=== PATIENT | female | born 1970 | race Asian ===

== ENCOUNTER 2020-04-03 07:22 | Inpatient (IN) ==
[2020-04-03] MEDS ORDERED: Artificial Tears SOLN 15 ML BOTTLE BOTH EYES PRN (10:17)
[2020-04-03] MEDS ORDERED: Naloxone 0.4 MG/ML INJ IVP PRN (10:17)
[2020-04-03 11:48] LABS: Adenovirus Not Detected (Not Detect); Bordetella Pertussis Not Detected (Not Detect); Chlamydophila pneumoniae Not Detected (Not Detect); Coronavirus 229E Not Detected (Not Detect); Coronavirus HKU1 Not Detected (Not Detect); Coronavirus NL63 Not Detected (Not Detect); Coronavirus OC43 Not Detected (Not Detect); Human Metapneumovirus Not Detected (Not Detect); Human Rhinovirus/Enterovirus Not Detected (Not Detect); Influenza A Subtype 2009 H1 Not Detected (Not Detect); Influenza B Not Detected (Not Detect); Mycoplasma pneumoniae Not Detected (Not Detect); Parainfluenza Virus 1 Not Detected (Not Detect); Parainfluenza Virus 2 Not Detected (Not Detect); Parainfluenza Virus 3 Not Detected (Not Detect); Parainfluenza Virus 4 Not Detected (Not Detect); Respiratory Syncytial Virus Not Detected (Not Detect); SARS-CoV-2 Not Detected (Not Detect)
[2020-04-03] MEDS ORDERED: *HR* Heparin 10,000 UNIT/10 ML VIAL IV PRN (12:52)
[2020-04-03] MEDS ORDERED: 0.9 % Sodium Chloride 250 ML IVC PRN (12:52)
[2020-04-03] MEDS ORDERED: 0.9 % Sodium Chloride 1,000 ML PRIME SCH (13:00)
[2020-04-03] MEDS: niCARdipine 20 MG/200 ML MLS IVC SCH ×4 (13:43→20:25)
[2020-04-03] MEDS: Artificial Tears SOLN 15 ML BOTTLE BOTH EYES SCH ×4 (13:47→23:49)
[2020-04-03 14:03] LABS: Hepatitis B Surface Antibody < 3.10 mIU/mL
[2020-04-03 14:13] LABS: Hepatitis B Surface Antigen Nonreactive (Nonreactive)
[2020-04-03 16:05] LABS: ABG Base Excess 5 mEq/L (-2 to 3); ABG HCO3 27 mEq/L (21-27); ABG Oxygen Saturation 100 % (95-98); ABG PCO2 30 mmHg (35-45); ABG PH 7.56 pH Units (7.32-7.45); ABG PO2 196 mmHg (85-104); ABG TCO2 28 mEq/L (20-26); Blood Gas Modality ASSIST CONTROL; Blood Gas VT 330 cc
[2020-04-03] MEDS: Famotidine 20 MG/2 ML VIAL IVP SCH (17:26)
[2020-04-03] MEDS ORDERED: Perflutren Lipid Microsphere 1.3 ML in 0.9 % Sodium Chloride 8.7 ML IVP PRN (18:36)
[2020-04-03] MEDS: Midazolam HCl 50 MG/100 ML IV.SOLN IVC SCH (18:40)
[2020-04-03] MEDS ORDERED: *HR* Metoprolol 5 MG/5 ML VIAL IVP SCH (20:00)
[2020-04-03] MEDS: Chlorhexidine Rinse 15 ML MOUTHWASH MM SCH (20:52)
[2020-04-03 22:00] LABS: ABG Base Excess 6 mEq/L (-2 to 3); ABG HCO3 30 mEq/L (21-27); ABG Oxygen Saturation 83 % (95-98); ABG PCO2 37 mmHg (35-45); ABG PH 7.51 pH Units (7.32-7.45); ABG PO2 42 mmHg (85-104); ABG TCO2 31 mEq/L (20-26); Blood Gas VT 300 cc
[2020-04-03] MEDS ORDERED: Vancomycin 500 MG in 0.9 % Sodium Chloride 250 ML IVPB SCH (22:00)
[2020-04-03] MEDS: Dexmedetomidine HCl 400 MCG/100 ML MLS IVC SCH (22:05)
[2020-04-03 22:06] LABS: ABG Base Excess 7 mEq/L (-2 to 3); ABG HCO3 30 mEq/L (21-27); ABG Oxygen Saturation 99 % (95-98); ABG PCO2 35 mmHg (35-45); ABG PH 7.54 pH Units (7.32-7.45); ABG PO2 100 mmHg (85-104); ABG TCO2 31 mEq/L (20-26); Blood Gas Modality AF; Blood Gas VT 300 cc
[2020-04-03] MEDS: Piperacillin/Tazobactam 3.375 GM in 0.9 % Sodium Chloride Mini Bag 100 ML IVPB SCH (23:28)
[2020-04-04] MEDS: niCARdipine 20 MG/200 ML MLS IVC SCH ×5 (00:35→17:39)
[2020-04-04] MEDS: *HR* Heparin 5,000 UNIT/ML VIAL SQ SCH ×2 (04:17→17:38)
[2020-04-04 04:50] LABS: ABG Base Excess 4 mEq/L (-2 to 3); ABG HCO3 27 mEq/L (21-27); ABG Oxygen Saturation 99 % (95-98); ABG PCO2 36 mmHg (35-45); ABG PO2 130 mmHg (85-104); ABG TCO2 29 mEq/L (20-26); Blood Gas Modality AF; Blood Gas VT 300 cc
[2020-04-04] MEDS: Artificial Tears SOLN 15 ML BOTTLE BOTH EYES SCH ×5 (04:51→20:37)
[2020-04-04] MEDS: *HR* Labetalol 20 MG/4 ML SYRINGE IVP PRN (04:52)
[2020-04-04 05:15] LABS: Calcium 8.3 mg/dL (8.6-10.3); Potassium 4.9 mEq/L (3.5-5.1)
[2020-04-04 05:57] LABS: Basophils % 0.1 %; Eosinophils # 0.3 K/mcL (0.0-0.6); Hemoglobin 6.6 g/dL (11.5-15.4); Immature Granulocytes % 0.1 % (0-4); Lymphocytes # 1.2 K/mcL (0.6-4.6); Lymphocytes % 17.5 %; Mean Corpuscular Hemoglobin 29.3 pg (28.0-33.3); Mean Corpuscular Volume 97.8 fL (83.0-100.0); Mean Platelet Volume 10.8 fL (9.4-12.4); Monocytes # 0.5 K/mcL (0.0-1.3); Monocytes % 7.6 %; Neutrophils # 4.7 K/mcL (1.6-8.9); Platelet Count 101 K/mcL (140-400); Red Blood Count 2.25 M/mcL (3.82-4.97); Red Cell Distribution Width 18.6 % (11.5-14.5); Segmented Neutrophils % 70.7 %; White Blood Count 6.7 K/mcL (4.3-11.1)
[2020-04-04] MEDS ORDERED: *HR* Heparin 10,000 UNIT/10 ML VIAL IV PRN (07:25)
[2020-04-04] MEDS ORDERED: 0.9 % Sodium Chloride 250 ML IVC PRN (07:25)
[2020-04-04] MEDS: Chlorhexidine Rinse 15 ML MOUTHWASH MM SCH ×2 (07:48→20:36)
[2020-04-04] MEDS ORDERED: 0.9 % Sodium Chloride 250 ML IVC SCH (08:15)
[2020-04-04] MEDS ORDERED: 0.9 % Sodium Chloride 250 ML ONE (09:31)
[2020-04-04] MEDS: Midazolam HCl 50 MG/100 ML IV.SOLN IVC SCH (09:42)
[2020-04-04 09:44] LABS: % Iron Saturation 21 % (15-50); Iron 32 mcg/dL (50-170); Transferrin 110 mg/dL (203-362)
[2020-04-04 10:09] LABS: Folate 13.2 ng/mL (3.0-16.0)
[2020-04-04] MEDS: Piperacillin/Tazobactam 3.375 GM in 0.9 % Sodium Chloride Mini Bag 100 ML IVPB SCH ×2 (11:19→23:17)
[2020-04-04] MEDS: Dexmedetomidine HCl 400 MCG/100 ML MLS IVC SCH (13:27)
[2020-04-04 14:47] LABS: Hematocrit 30.1 % (35.3-44.9)
[2020-04-04 14:49] LABS: Hemoglobin 9.4 g/dL (11.5-15.4)
[2020-04-04] MEDS: Doxycycline 100 MG in 0.9 % Sodium Chloride Mini Bag 100 ML IVPB SCH (17:38)
[2020-04-04] MEDS: Famotidine 20 MG/2 ML VIAL IVP SCH (17:38)
[2020-04-05] MEDS: niCARdipine 20 MG/200 ML MLS IVC SCH ×3 (03:16→20:17)
[2020-04-05] MEDS: Artificial Tears SOLN 15 ML BOTTLE BOTH EYES SCH ×3 (03:17→07:59)
[2020-04-05] MEDS: *HR* Labetalol 20 MG/4 ML SYRINGE IVP PRN ×4 (04:07→13:47)
[2020-04-05 05:17] LABS: Basophils # 0.1 K/mcL (0.0-0.2); Basophils % 0.6 %; Eosinophils # 0.5 K/mcL (0.0-0.6); Eosinophils % 5.5 %; Hematocrit 27.6 % (35.3-44.9); Hemoglobin 8.7 g/dL (11.5-15.4); Immature Granulocytes % 0.2 % (0-4); Lymphocytes # 1.2 K/mcL (0.6-4.6); Lymphocytes % 13.9 %; Mean Corpuscular HGB Conc 31.5 g/dL (31.6-35.5); Mean Corpuscular Hemoglobin 29.8 pg (28.0-33.3); Mean Corpuscular Volume 94.5 fL (83.0-100.0); Mean Platelet Volume 11.2 fL (9.4-12.4); Monocytes # 0.7 K/mcL (0.0-1.3); Monocytes % 8.5 %; Nucleated Red Blood Cells 0.2 /100 WBC (0); Platelet Count 113 K/mcL (140-400); Red Blood Count 2.92 M/mcL (3.82-4.97); Red Cell Distribution Width 16.5 % (11.5-14.5); Segmented Neutrophils % 71.3 %; White Blood Count 8.4 K/mcL (4.3-11.1)
[2020-04-05 05:19] LABS: VBG Ionized Calcium 1.05 mmol/L (1.15-1.35)
[2020-04-05 05:35] LABS: Magnesium 2.2 mg/dL (1.6-2.6); Potassium 4.4 mEq/L (3.5-5.1)
[2020-04-05] MEDS: *HR* Heparin 5,000 UNIT/ML VIAL SQ SCH (06:03)
[2020-04-05] MEDS: Doxycycline 100 MG in 0.9 % Sodium Chloride Mini Bag 100 ML IVPB SCH (06:06)
[2020-04-05] MEDS ORDERED: Calcium Gluconate 1gm/50mL 1 GM/50 ML BAG IVPB SCH ×2 (07:00→10:30)
[2020-04-05] MEDS ORDERED: 0.9 % Sodium Chloride 250 ML IVC PRN (07:50)
[2020-04-05] MEDS ORDERED: *HR* Heparin 10,000 UNIT/10 ML VIAL IV PRN ×3 (07:50→19:41)
[2020-04-05] MEDS ORDERED: Calcium Gluconate 1,000 MG/10 ML VIAL ONE (07:54)
[2020-04-05] MEDS ORDERED: 0.9 % Sodium Chloride 1,000 ML PRIME SCH (08:00)
[2020-04-05] MEDS: Chlorhexidine Rinse 15 ML MOUTHWASH MM SCH (09:26)
[2020-04-05] MEDS ORDERED: Naloxone 0.4 MG/ML INJ IVP PRN ×2 (10:29→19:41)
[2020-04-05] MEDS: Calcium Gluconate 1gm/50mL 1 GM/50 ML BAG IVPB SCH ×2 (11:33→12:11)
[2020-04-05] MEDS ORDERED: 0.9 % Sodium Chloride 1,000 ML ONE (11:52)
[2020-04-05] MEDS ORDERED: Piperacillin/Tazobactam 3.375 GM in 0.9 % Sodium Chloride Mini Bag 100 ML IVPB SCH (12:00)
[2020-04-05] MEDS ORDERED: Lidocaine -MPF 2% 5 ML VIAL ONE (14:42)
[2020-04-05] MEDS ORDERED: hydrALAZINE 25 MG TABLET PO SCH (16:00)
[2020-04-05] MEDS ORDERED: cloNIDine HCL 0.1 MG TABLET PO SCH (16:15)
[2020-04-05] MEDS ORDERED: Doxycycline 100 MG in 0.9 % Sodium Chloride Mini Bag 100 ML IVPB SCH (18:00)
[2020-04-05] MEDS ORDERED: *HR* Heparin 5,000 UNIT/ML VIAL SQ SCH (18:00)
[2020-04-05] MEDS ORDERED: Famotidine 20 MG/2 ML VIAL IVP SCH (18:00)
[2020-04-05] MEDS ORDERED: niCARdipine 20 MG/200 ML MLS IVC SCH (19:41)
[2020-04-05] MEDS ORDERED: *HR* Labetalol 20 MG/4 ML SYRINGE IVP PRN (19:41)
[2020-04-05] MEDS: cloNIDine HCL 0.1 MG TABLET PO SCH (20:15)
[2020-04-05] MEDS: Doxycycline 100 MG CAPSULE PO SCH (20:15)
[2020-04-05] MEDS: Piperacillin/Tazobactam 3.375 GM in 0.9 % Sodium Chloride Mini Bag 100 ML IVPB SCH (20:16)
[2020-04-05] MEDS ORDERED: Doxycycline 100 MG CAPSULE PO SCH (21:00)
[2020-04-06] MEDS: hydrALAZINE 25 MG TABLET PO SCH ×2 (00:03→08:30)
[2020-04-06] MEDS: niCARdipine 20 MG/200 ML MLS IVC SCH (04:42)
[2020-04-06] MEDS ORDERED: *HR* Heparin 5,000 UNIT/ML VIAL SQ SCH (06:00)
[2020-04-06] MEDS ORDERED: hydrOXYzine pamoate 25 MG CAPSULE PO PRN (07:53)
[2020-04-06] MEDS ORDERED: carvediloL 25 MG TABLET PO SCH (08:00)
[2020-04-06] MEDS: Doxycycline 100 MG CAPSULE PO SCH (08:30)
[2020-04-06] MEDS: cloNIDine HCL 0.1 MG TABLET PO SCH (08:30)
[2020-04-06] MEDS: Piperacillin/Tazobactam 3.375 GM in 0.9 % Sodium Chloride Mini Bag 100 ML IVPB SCH (08:31)
[2020-04-06 11:26] VITALS: BP 144/105
== END 2020-04-06 15:31 | disposition home or self-care (01) | DRG 871 ==
LOC: CDU 09:50 → ICNU 11:50 → 2ANU 04-05 10:16 → 2NNU 04-05 19:35
PROVIDERS: ADMIT Family Medicine; ATTEND Internal Medicine

== ENCOUNTER 2020-10-21 02:00 | Observation (INO) ==
[2020-10-21] MEDS ORDERED: *HR* HYDROmorphone (PF) 1 MG/ML SYRINGE IVP ONE (03:33)
[2020-10-21 03:35] LABS: Basophils % 0.5 %; Eosinophils # 0.5 K/mcL (0.0-0.6); Hematocrit 33.9 % (35.3-44.9); Hemoglobin 10.6 g/dL (11.5-15.4); Immature Granulocytes % 0.2 % (0-4); Lymphocytes # 1.4 K/mcL (0.6-4.6); Lymphocytes % 16.4 %; Mean Corpuscular HGB Conc 31.3 g/dL (31.6-35.5); Mean Corpuscular Hemoglobin 31.5 pg (28.0-33.3); Mean Corpuscular Volume 100.9 fL (83.0-100.0); Mean Platelet Volume 10.2 fL (9.4-12.4); Monocytes # 0.6 K/mcL (0.0-1.3); Monocytes % 6.3 %; Neutrophils # 6.2 K/mcL (1.6-8.9); Platelet Count 206 K/mcL (140-400); Red Blood Count 3.36 M/mcL (3.82-4.97); Red Cell Distribution Width 13.6 % (11.5-14.5); Segmented Neutrophils % 70.6 %; White Blood Count 8.7 K/mcL (4.3-11.1)
[2020-10-21 03:46] LABS: Albumin 4.4 g/dL (3.5-5.7); Bilirubin,Total 0.4 mg/dL (0.3-1.0); Calcium 10.2 mg/dL (8.6-10.3); Globulin 4.4 g/dL (2.4-3.5); Potassium 3.9 mEq/L (3.5-5.1); Total Protein 8.8 g/dL (6.4-8.9)
[2020-10-21] MEDS ORDERED: Ondansetron 4 MG/2 ML VIAL IVP ONE (04:29)
[2020-10-21] MEDS ORDERED: Prochlorperazine 10 MG/2 ML VIAL IVP ONE (05:12)
[2020-10-21] MEDS ORDERED: niCARdipine 20 MG/200 ML MLS IVC SCH (05:45)
[2020-10-21] MEDS ORDERED: hydrALAZINE 25 MG TABLET PO SCH (09:00)
[2020-10-21] MEDS ORDERED: cloNIDine HCL 0.1 MG TABLET PO SCH (09:00)
[2020-10-21] MEDS: carvediloL 25 MG TABLET PO SCH ×2 (09:16→17:03)
[2020-10-21] MEDS: metroNIDAZOLE 500 MG TABLET PO SCH ×3 (09:17→21:45)
[2020-10-21] MEDS: NIFEdipine XL (24 HR) 30 MG TAB.ER.24 PO SCH ×2 (09:18→21:45)
[2020-10-21] MEDS ORDERED: Melatonin 3 MG TABLET PO PRN (15:02)
[2020-10-21] MEDS ORDERED: Acetaminophen 325 MG TABLET PO PRN (15:02)
[2020-10-21] MEDS ORDERED: Ondansetron 4 MG/2 ML VIAL IVP PRN (15:02)
[2020-10-21] MEDS: hydrALAZINE 25 MG TABLET PO SCH ×2 (15:42→21:45)
[2020-10-21] MEDS: cloNIDine HCL 0.1 MG TABLET PO SCH ×2 (15:45→21:45)
[2020-10-21] MEDS: *HR* Heparin 5,000 UNIT/ML VIAL SQ SCH (17:03)
[2020-10-22 03:23] LABS: Calcium 9.9 mg/dL (8.6-10.3); Potassium 4.3 mEq/L (3.5-5.1)
[2020-10-22] MEDS: *HR* Heparin 5,000 UNIT/ML VIAL SQ SCH (07:11)
[2020-10-22 07:19] VITALS: BP 118/74
[2020-10-22] MEDS: metroNIDAZOLE 500 MG TABLET PO SCH (07:48)
[2020-10-22] MEDS: cloNIDine HCL 0.1 MG TABLET PO SCH (07:49)
[2020-10-22] MEDS ORDERED: carvediloL 25 MG TABLET PO SCH (08:00)
[2020-10-22] MEDS ORDERED: hydrALAZINE 25 MG TABLET PO SCH (09:00)
[2020-10-22] MEDS ORDERED: NIFEdipine XL (24 HR) 30 MG TAB.ER.24 PO SCH (21:00)
== END 2020-10-22 10:24 | disposition home or self-care (01) ==
LOC: EMEROOARM 02:00 → ICNU 02:00 → SUATTDRO 06:16 → ICNU 06:40 → 2ANU 16:03
PROVIDERS: ADMIT Internal Medicine; ATTEND Internal Medicine